=== PATIENT | female | born 1935 | race Caucasian/White ===

== ENCOUNTER 2018-01-05 14:29 | Emergency (ER) | payer MEDICARE ==
--- NOTE | 2018-01-05 15:18 | RAD ---
AP VIEW CHEST: Date: 01/05/18 INDICATION: Cough. FINDINGS: There is air space opacity in right middle lobe suspicious for pneumonia. Left lung is clear. No acut e osseous abnormality is evident. IMPRESSION: Right middle lobe pneumonia. Radiographic follow-up to resolution is recommended. POS: [facility]
== END 2018-01-05 15:14 | disposition home or self-care (01) ==
LOC: MADERS 14:29
DX: J06.9 Acute upper respiratory infection, unspecified (principal); F41.9 Anxiety disorder, unspecified
CPT/HCPCS: 71045

== ENCOUNTER 2019-01-14 23:06 | Emergency (ER) | payer MEDICARE ==
[~2019-01-14 23:06] MED LIST: Sodium Chloride 0.9% 100 ML BAG ONE; Sodium Chloride Irrig Solution 250 ML BOT ONE
[2019-01-15] MEDS ORDERED: cefTRIAXone\\ROCEPHIN 1 GM VIAL ONE
[2019-01-15 00:25] LABS: Band 1 % (5-11); Eosinophils 1 % (0-10); Hemoglobin 11.4 g/dL (12.0-16.0); Hypochromia SLIGHT = 6-15 cells (100X) (0-5/hpf); Lymphocytes 3 % (21-51); MDiff Complete? YES; Mean Corpuscular HGB CONC 32.6 g/dL (32.0-36.0); Mean Corpuscular Hemoglobin 28.3 pg (27.0-31.0); Mean Corpuscular Volume 86.8 fL (78.0-98.0); Mean Platelet Volume 5.7 fL (7.4-10.4); Monocytes 8 % (0-10); Neutrophil 87 % (42-75); Platelet Count 476 thou/uL (130-400); Platelet Morphology Comment Appears Adequate; RBC Distribution Width 12.6 % (11.5-14.5); RBC Morphology Abnormal; Red Blood Cell (RBC) Count 4.02 mill/uL (4.20-5.40); White Blood Cell (WBC) Count 29.3 thou/uL (4.8-10.8)
[2019-01-15 00:28] LABS: ALT (SGPT) 43 U/L (8-55); AST (SGOT) 56 U/L (5-34); Albumin 2.8 g/dL (3.4-4.8); Alkaline Phosphatase 333 U/L (40-150); Anion Gap 16 mmol/L (10-20); BUN (Urea Nitrogen) 12 mg/dL (9.8-20.1); Bilirubin, Total 1.7 mg/dL (0.2-1.2); Calc. Creatinine Clearance 0 mL/min (70-130); Calcium 8.1 mg/dL (7.8-10.44); Carbon Dioxide 27 mmol/L (23-31); Chloride 92 mmol/L (98-107); Estimated GFR-MDRD Greater than 90; Globulin 4.2 g/dL (2.4-3.5); Glucose 139 mg/dL (83-110); Potassium 3.5 mmol/L (3.5-5.1); Sodium 131 mmol/L (136-145)
== END 2019-01-15 01:10 | disposition short-term general hospital (02) ==
LOC: MADERS 23:06
DX: L89.513 Pressure ulcer of right ankle, stage 3 (principal); F03.90 Unspecified dementia, unspecified severity, without behavioral disturbance, psychotic disturbance, mood disturbance, and anxiety; F41.9 Anxiety disorder, unspecified
CPT/HCPCS: 36415; 80053; 83605; 84484; 85025; 87040; 93005; 96365; J0696; J7050

== ENCOUNTER 2019-01-21 18:20 | Inpatient (IN) | payer MEDICARE ==
[2019-01-21] MEDS ORDERED: Acetaminophen 325 MG TAB PO PRN (19:31)
[2019-01-21] MEDS ORDERED: Ondansetron ODT 4 MG TAB PO PRN (19:35)
[2019-01-21] MEDS ORDERED: Amoxicillin/Potassium Clav 250 mg/5 ml Oral Suspension PO SCH (21:00)
[2019-01-21] MEDS: Senokot 8.6 MG TAB PO SCH (21:11)
[2019-01-21] MEDS: Heparin 5,000 UNITS/ML VIAL SC SCH (21:11)
[2019-01-22] MEDS ORDERED: metroNIDAZOLE 250 MG TAB PO SCH (00:15)
[2019-01-22 04:17] LABS: Bilirubin Small (Negative); Blood, Urine Trace (Negative); Glucose, Urine (Dipstick) Negative (Negative); Leukocyte Negative (Negative); Nitrite Negative (Negative); Protein, Urine (Dipstick) 30 mg/dL (Neg-Trace); Urobilinogen 0.2 mg/dL (0.2-1.0); pH, Urine 5.5 (5.0-9.0)
[2019-01-22 04:18] LABS: Clarity Cloudy (Clear)
[2019-01-22 04:22] LABS: Crystals/HPF 4+ AMORPH URATES HPF (Negative)
[2019-01-22 04:25] LABS: Bacteria/HPF Rare-Few HPF (None Seen); RBC/HPF 0-3 HPF (0-3); Squamous Epithelial 0-3 HPF (0-3); WBC/HPF None Seen HPF (0-3)
[2019-01-22 04:26] LABS: Other Casts/LPF 0-3 COARSE GRAN LPF (0-3 Hyaline)
[2019-01-22 05:32] LABS: #Eosinphils 0.1 thou/uL (0.0-0.7); #Lymphocytes 1.3 thou/uL (1.20-3.40); #Monocytes 1.1 thou/uL (0.11-0.59); #Neutrophils 10.4 thou/uL (1.40-6.50); %Basophils 0.3 % (0.0-1.0); %Eosinophils 0.6 % (0.0-10.0); %Lymphocytes 9.8 % (21.0-51.0); %Monocytes 8.8 % (0.0-10.0); %Neutrophils 80.5 % (42.0-75.0); Hemoglobin 8.3 g/dL (12.0-16.0); Mean Corpuscular HGB CONC 32.6 g/dL (32.0-36.0); Mean Corpuscular Hemoglobin 28.7 pg (27.0-31.0); Mean Corpuscular Volume 88.3 fL (78.0-98.0); Mean Platelet Volume 4.5 fL (7.4-10.4); Platelet Count 501 thou/uL (130-400); RBC Distribution Width 13.6 % (11.5-14.5); Red Blood Cell (RBC) Count 2.89 mill/uL (4.20-5.40); White Blood Cell (WBC) Count 12.9 thou/uL (4.8-10.8)
[2019-01-22 05:44] LABS: ALT (SGPT) 14 U/L (8-55); AST (SGOT) 11 U/L (5-34); Albumin 2.1 g/dL (3.4-4.8); Alkaline Phosphatase 167 U/L (40-150); Anion Gap 15 mmol/L (10-20); BUN (Urea Nitrogen) 6 mg/dL (9.8-20.1); Bilirubin, Total 0.4 mg/dL (0.2-1.2); Calc. Creatinine Clearance 56 mL/min (70-130); Calcium 7.1 mg/dL (7.8-10.44); Carbon Dioxide 21 mmol/L (23-31); Chloride 110 mmol/L (98-107); Estimated GFR-MDRD Greater than 90; Globulin 3.1 g/dL (2.4-3.5); Glucose 84 mg/dL (83-110); Protein, Total 5.2 g/dL (6.0-8.3); Sodium 143 mmol/L (136-145)
[2019-01-22 05:56] LABS: Potassium 2.9 mmol/L (3.5-5.1)
[2019-01-22] MEDS: Amoxicillin/Potassium Clav 250 mg/5 ml Oral Suspension PO SCH ×2 (08:26→21:21)
[2019-01-22] MEDS: metroNIDAZOLE 250 MG TAB PO SCH ×2 (08:27→16:50)
[2019-01-22] MEDS: Heparin 5,000 UNITS/ML VIAL SC SCH ×2 (08:27→20:31)
[2019-01-22] MEDS: Saccharomyces boulardii 250 MG CAP PO SCH (08:28)
[2019-01-22] MEDS: Senokot 8.6 MG TAB PO SCH ×2 (08:28→20:31)
--- NOTE | 2019-01-22 10:44 | HP ---
CHIEF COMPLAINT: Weakness and multiple wounds. 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 She also has a history of vascular dementia. She is bed and chair confined. She is nonambulatory and requires total care. She is incontinent of urine. She is cared for by her lbbgukkv-uk-ltk, who has attended her for several years. The patient has through these years developed areas of ulcerations particularly on her feet, occasionally on her bottom, and also in the palm of her left hand from the severe flexion contracture. Due to her severe weakness and flexion contraction, care of this lady has been most difficult. The patient has not been seen by me in over a year. Her ahccpjla-lg-gpo had recently called and said that she had developed severe ulcerations on the sacrum that had gotten worse and that was beyond her abilities to take care of. They had recommended that she be taken to the emergency room, where she could be fully evaluated for these wounds and also re-evaluate the patient because she seemed to have been doing overall worse and not eating as much. The patient was taken to [facility] and evaluated and found to have multiple wounds over her body, most particularly with stage IV decubitus over the sacrum and stage IV over the right ischial tuberosity and an unstageable decubitus over the left ischial tuberosity. She also had multiple lesser wounds over the shoulders, elbows, and over the feet. She was found to have a right middle lobe pneumonia and marked leukocytosis with a white cell count of 29, 000. She was admitted with a diagnosis of right middle lobe pneumonia and probable sepsis , malnutrition and multiple decubitus, that were probably secondarily infected. During her hospitalization, she had blood cultures drawn that had no growth. She was placed on antibiotics using vancomycin and ceftriaxone. The patient's leukocytosis gradually diminished. She has a chronic anemia. There were some mild drop in this, probably secondary to fluids. Hemoglobin is typically around 8.5. She was seen in consultation by the surgeon for consideration of debridement of the stage IV decubitus and he felt that this would be counterproductive given her advanced dementia, contracted state and recommended just palliative care and consideration of hospice care. The patient was also seen by Dr. Nuñez with Infectious Disease, who recommended continuation of the antibiotics and wound care and consideration of palliative hospice type care. Family was at this point, opposed to hospice care , but the patient does have a DNR. Eventually, it was elected to move the patient to [facility] to [facility] i.e., [facility] for wound care and also an effort to try to improve her general nutritional status and general care. Long-term prognosis was felt to be extremely poor, though. The patient had been discharged on Augmentin and Flagyl for the wound infections. The patient arrived at [facility] late on the evening of 01/21. The patient was seen early on the morning of 01/22/2019. She was alert and had very limited interaction. She did talk and at one time, correctly called my name. No historical information could be obtained from her. Information was obtained from my office records and from the recent hospital record, which are outlined above. PAST HISTORY: Previous cerebrovascular accidents that have left her with dense left hemiparalysis, that has been complicated by severe flexion contractures at the shoulder, elbow, wrist and hand, and in the hip and lower legs and feet. She also has very limited use of her right side and essentially and has required total care. She has a vascular dementia. She also has a history years ago of DVT of the left leg in 2015. Historically, she has had a stent placed in the right ureter for apparently hydronephrosis. She has had no previous surgeries. PRESENT MEDICINES: 1. Acetaminophen 325 mg two every 4 hours as needed. 2. Albuterol-ipratropium by nebulizer every 4 hours as needed. 3. Augmentin 400 mg every 12 hours for 10 days. 4. Heparin 5000 units subcu b.i.d. for DVT prophylaxis. 5. Influenza vaccine was received on 01/22. 6. Metronidazole 500 mg t.i.d. for 10 days. 7. Zofran oral disintegrating tablets 4 mg every 6 hours as needed. 8. Florastor 250 mg daily. 9. Senokot one b.i.d. ALLERGIES: NO KNOWN ALLERGIES. REVIEW OF SYSTEMS: The patient not able to answer review of system. Nurses have observed that the patient is on a pureed diet. The patient is a total care. She is nonambulatory. In the home setting, she was primarily in bed, but often would be set up in a wheelchair chair. She is incontinent of urine and stools. HABITS: Alcohol, none. Tobacco, none. SOCIAL HISTORY: The patient is a . She has been taken care of by her abcdaoxx-pu-itd. CODE STATUS: DNR. PHYSICAL EXAMINATION: GENERAL: Shows a cachectic 83-year-old white female, who is lying in bed. She is awake, alert, and occasionally will talk out and will holler any attempts with movement. On an occasion, she did call out my name and she does not appear in any acute distress. VITAL SIGNS: Show a temperature of 98.6, pulse 113, respirations 22, O2 saturation 96% on room air, blood pressure 132/76. Her weight is 99 pounds. HEENT: Head, normocephalic and atraumatic. Her scalp; the hair is matted and there is yellow scaling on the scalp, particularly at the hairlines with extension of this yellow scaling down the preauricular areas bilateral. The ears; the TMs could not be visualized due to cerumen. Eyes; pupils are equal, round, and reactive. Sclerae nonicteric. Nose normal. Mouth and throat; the mucous membranes are moist. There may be a little dryness on the tongue. NECK: Carotids are equal and strong. There is no adenopathy. Thyroid not enlarged. LUNGS: Have good breath sounds. There are no rales. The patient has expiratory rhonchi over the anterior and posterior chest. I did not hear any definite wheezing. HEART: Regular rate. ABDOMEN: Scaphoid with no organomegaly nor areas of tenderness. NEUROLOGIC: The patient is alert, is disoriented to time, place, and situation. She did correctly call my name on one occasion. She could not answer any questioning about what had happened to her. She has a very dense left hemiparalysis with severe contractures of the left shoulder, elbow, wrist, hand. The fingers tightly closed into a fist that could not be extended. Also, tight flexion contractures of the hips and elbows. Her right side, the right arm, she has limited motion. Her right foot is extended with plantar flexion of the feet with a little movement in it also. SKIN: The patient has multiple decubitus, the ones of most note are the following; sacral that measures 9 x 9 cm extends down to the sacral bone. Has some brown yellowish slough in the base of the wound. Edges of the wound have some leathery necrosis along the inferior and lateral borders. The wound undermines particularly on the left and inferior aspect at least 2 cm. The next one is the right ischial tuberosity. There is a 3 cm stage IV decubitus that extends to a depth of at least 3 cm with a brown mucoid slough at the base of the wound extends down to the ischial tuberosity. Over the left ischial tuberosity, there is a 1 x 2 cm unstageable decubitus that has kind of a black and overlying eschar. No surrounding redness. The patient has multiple superficial ulcerations that are mostly stage II that hurt over her right shoulder, right elbow and over the dorsum of the right foot. Over the right foot on the plantar surface of the first MP joint, there is a stage III decubitus that is 3 cm in diameter with a red base with some small areas of yellow slough. There is no surrounding erythema. The patient also has stage II decubitus along the posterior left upper leg. The left hand has a severe flexion contracture, where the hand is held into a fist position with the tuft of the fingertips deeply imbedded into the palm. These fingers cannot be extended. There appears to be a guaze that has been there for a long time between two of the fingers that has been placed in the hand that could not be extracted at this time. IMPRESSION: 1. Multiple decubitus. a. Stage IV sacral decubitus. b. Stage IV right ischial tuberosity decubitus. c. Unstageable left ischial tuberosity. d. Multiple stage II decubitus over the right shoulder, elbow, dorsum of the foot, left leg. e. Stage III decubitus over the plantar surface of the first MP joint of the right foot. 2. Vascular dementia, very advanced. a. Requires total care. 3. History of cerebral vascular accident. a. 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 b. Extension deformity with plantar flexion of the right leg. c. Essentially quadriplegic. 4. Severe weakness. a. Bed confined. b. Requires total care. c. Urinary incontinence. 5. Code status, DNR. 6. Hospitalized at [facility] from 01/15 to 01/21/2019 for right middle lobe pneumonia and multiple decubitus with infection. PLAN: The patient has been admitted to [facility] for wound care and also comfort measures. Family at this point has not wanted to pursue hospice care. Will though manage the patient in a palliative manner while also tending the wounds. Her long-term prognosis is very poor. She does have a DNR. The wound management on the deep stage IV will be managed with wet-to-dry dressings. The stage III on the right foot will be managed with daily cleansing and application of a silver alginate pad and overlying Mepilex. The more superficial wounds will be cared for with cleansing and application of Mepilex dressings. The patient will be placed on air floatation mattress. We will try to improve her nutritional status as best as she will allow. Will position her for comfort. Christie catheter has been inserted to prevent maturation of these severe wounds to the sacrum and the ischial tuberosity areas. Code status is a DNR. We will complete a 10-day course of the antibiotics. Job ID: [id number] [facility]
[2019-01-22] MEDS: Acetaminophen 325 MG TAB PO PRN (13:46)
[2019-01-23] MEDS: metroNIDAZOLE 250 MG TAB PO SCH ×4 (00:24→23:31)
[2019-01-23 05:30] LABS: Anion Gap 16 mmol/L (10-20); BUN (Urea Nitrogen) 5 mg/dL (9.8-20.1); Calc. Creatinine Clearance 64 mL/min (70-130); Carbon Dioxide 20 mmol/L (23-31); Chloride 107 mmol/L (98-107); Estimated GFR-MDRD Greater than 90; Glucose 129 mg/dL (83-110); Sodium 140 mmol/L (136-145)
[2019-01-23] MEDS ORDERED: Potassium Chloride 20 MEQ TAB PO SCH (08:00)
[2019-01-23] MEDS: Amoxicillin/Potassium Clav 250 mg/5 ml Oral Suspension PO SCH ×2 (08:54→20:44)
[2019-01-23] MEDS: Heparin 5,000 UNITS/ML VIAL SC SCH ×2 (08:55→20:44)
[2019-01-23] MEDS: Senokot 8.6 MG TAB PO SCH ×3 (08:56→20:54)
[2019-01-23] MEDS: Saccharomyces boulardii 250 MG CAP PO SCH (08:56)
--- NOTE | 2019-01-23 09:34 | PRG ---
DATE OF SERVICE: 01/23/2019 SUBJECTIVE: The patient was seen early this morning. She was lying in her bed. Her eyes were awake. She was alert. Would answer some questions and she said she was not hurting, but really could not get her to answer many other questions. When we go to examine her or move her in the least, she says we were hurting her. The dietitian has made several recommendations on dietary change, which will follow. Have opted to wait about starting usual the medicines for wound healing that would be the vitamin C , the zinc, the multivitamins and protein supplements since she is having trouble with poor appetite. This probably also contributed to by her antibiotics. As this improves, we will consider starting these then. The patient did develop, the nurse reported this morning, some loose stools that had a strong odor. These have been submitted to ensure there is not a C. diff infection. Presently though, she is on metronidazole. OBJECTIVE: GENERAL: The patient is lying in bed, alert, appears comfortable, in no distress. VITAL SIGNS: Her temperature 99.1, pulse 93, respirations 18, O2 saturation 94% , and blood pressure 134/66. LUNGS: Clear. HEART: Regular rate. EXTREMITIES: I did not attempt to look at the wounds yet. These are being changed once a day and will review report from nurses or visit with nurses after this has been done. LABORATORY DATA: Her sodium 140, potassium is 3, BUN is 5, creatinine 0.46, glucose 129. ASSESSMENT: 1. Multiple decubitus. a. Stage IV sacral decubitus. b. Stage IV right ischial tuberosity decubitus. c. Unstageable left ischial tuberosity. d. Multiple stage II decubitus over the right shoulder, elbow, dorsum of the foot, left leg. e. Stage III decubitus over the plantar surface of the first MP joint of the right foot. f. On going daily wound care as of 01/23/2019. 2. Vascular dementia, very advanced. a. Requires total care. 3. History of cerebral vascular accident. a. 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 b. Extension deformity with plantar flexion of the right leg. c. Essentially quadriplegic. 4. Severe weakness. a. Bed confined. b. Requires total care. c. Urinary incontinence. 5. Code status, DNR. 6. Hospitalized at [facility] from 01/15 to 01/21/2019 for right middle lobe pneumonia and multiple decubitus with infection. PLAN: Continue daily wound care. Continue comfort measures. Her potassium is up to 3. We will recheck this in a few days. Job ID: [id number] [facility]
[2019-01-23] MEDS ORDERED: Acetaminophen 325 MG TAB PO PRN (14:00)
[2019-01-24 05:21] LABS: #Basophils 0.1 thou/uL (0.0-0.2); #Eosinphils 0.1 thou/uL (0.0-0.7); #Lymphocytes 1.6 thou/uL (1.20-3.40); #Neutrophils 10.1 thou/uL (1.40-6.50); %Basophils 0.5 % (0.0-1.0); %Eosinophils 0.6 % (0.0-10.0); %Lymphocytes 12.4 % (21.0-51.0); %Monocytes 7.8 % (0.0-10.0); %Neutrophils 78.8 % (42.0-75.0); Hemoglobin 8.5 g/dL (12.0-16.0); Mean Corpuscular HGB CONC 33.6 g/dL (32.0-36.0); Mean Corpuscular Hemoglobin 29.4 pg (27.0-31.0); Mean Corpuscular Volume 87.6 fL (78.0-98.0); Mean Platelet Volume 4.6 fL (7.4-10.4); Platelet Count 463 thou/uL (130-400); RBC Distribution Width 14.6 % (11.5-14.5); White Blood Cell (WBC) Count 12.8 thou/uL (4.8-10.8)
[2019-01-24 05:32] LABS: Anion Gap 11 mmol/L (10-20); BUN (Urea Nitrogen) 5 mg/dL (9.8-20.1); Calc. Creatinine Clearance 65 mL/min (70-130); Calcium 6.7 mg/dL (7.8-10.44); Carbon Dioxide 25 mmol/L (23-31); Chloride 104 mmol/L (98-107); Estimated GFR-MDRD Greater than 90; Glucose 123 mg/dL (83-110); Sodium 137 mmol/L (136-145)
[2019-01-24 06:04] LABS: Potassium 2.5 mmol/L (3.5-5.1)
[2019-01-24] MEDS ORDERED: Sodium Chloride Irrig Solution 250 ML BOT ONE (06:47)
[2019-01-24] MEDS: Potassium Chloride 20 MEQ TAB PO SCH ×3 (08:18→16:51)
[2019-01-24] MEDS: Senokot 8.6 MG TAB PO SCH (08:19)
[2019-01-24] MEDS: Heparin 5,000 UNITS/ML VIAL SC SCH ×2 (08:19→21:09)
[2019-01-24] MEDS: Saccharomyces boulardii 250 MG CAP PO SCH (08:19)
[2019-01-24] MEDS: metroNIDAZOLE 250 MG TAB PO SCH ×2 (08:19→16:51)
--- NOTE | 2019-01-24 09:26 | PRG ---
DATE OF SERVICE: 01/24/2019 SUBJECTIVE: Nurses called and said that the patient had multiple watery bowel movements, soft bowel movements, through the night. The bowel movements created soiling of the sacral dressings, and the nurse had to re-dress the sacral wounds 6 to 7 times during the night. Her urinary output through the night was 150. Nurses said they were able to get 800 mL of water in her. OBJECTIVE: GENERAL: This morning, she is not complaining. She is lying in bed, looks comfortable. VITAL SIGNS: Show a temperature 99.4, pulse 88, respirations 20, O2 saturation 95% on room air, blood pressure 120/58. HEENT: Mouth; tongue is a little more dry. Mucous membranes look a little more dry than what they had. SKIN: The patient has poor skin turgor. LUNGS: Clear. HEART: Regular rate. ABDOMEN: Scaphoid and nontender. Her dressings are all clean. LABORATORY DATA: Show H and H of 8.5 and 25.4, white blood cell count 12,800 with 79% segs, 12% lymphocytes, and a platelet count of 463,000. Her sodium is 137. Her potassium has dropped to 2.5 as result of the diarrhea. Her CO2 is 25. Her BUN is 5, creatinine 0.45, GFR greater than 90. FBS 123. Clostridium difficile antigen and toxin were both negative, that was reported back early this morning. ASSESSMENT: 1. Multiple decubitus. a. Stage IV sacral decubitus. b. Stage IV right ischial tuberosity decubitus. c. Unstageable left ischial tuberosity. d. Multiple stage II decubitus over the right shoulder, elbow, dorsum of the foot, left leg. e. Stage III decubitus over the plantar surface of the first MP joint of the right foot. f. On going daily wound care as of 01/24/2019. 2. Vascular dementia, very advanced. a. Requires total care. 3. History of cerebral vascular accident. a. 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 b. Extension deformity with plantar flexion of the right leg. c. Essentially quadriplegic. 4. Severe weakness. a. Bed confined. b. Requires total care. c. Urinary incontinence. 5. Code status, DNR. 6. Hospitalized at [facility] from 01/15 to 01/21/2019 for right middle lobe pneumonia and multiple decubitus with infection. 7. Diarrhea. a. Stools for Clostridium difficile toxin and antigen, negative as of 2018. b. Etiology of the diarrhea may be secondary to the effect of the Augmentin and contributed to by the dietary supplements. 8. Hypokalemia. a. Potassium originally was 2.9, went up yesterday to 3, and now down to 2.5 secondary to the diarrhea as of 01/24/2019. PLAN: Encourage liquids. I will try not to have to initiate in this lady IV fluids unless we see further decline and if okay with family. I will try to encourage liquids. I have stopped the supplements in the event this is a contributor to the diarrhea. I have also stopped the Augmentin, which I suspect has contributed to the diarrhea. The patient is on a Florastor probiotic. We will continue this. We will continue present wound care and comfort measures. Job ID: [id number] [facility]
[2019-01-24] MEDS: Acetaminophen 325 MG TAB PO PRN (21:10)
[2019-01-25] MEDS: metroNIDAZOLE 250 MG TAB PO SCH ×4 (01:43→23:27)
[2019-01-25 07:54] LABS: #Basophils 0.1 thou/uL (0.0-0.2); #Eosinphils 0.1 thou/uL (0.0-0.7); #Lymphocytes 1.6 thou/uL (1.20-3.40); #Neutrophils 7.7 thou/uL (1.40-6.50); %Basophils 0.6 % (0.0-1.0); %Eosinophils 0.8 % (0.0-10.0); %Lymphocytes 15.4 % (21.0-51.0); %Monocytes 9.2 % (0.0-10.0); Hemoglobin 8.7 g/dL (12.0-16.0); Mean Corpuscular HGB CONC 32.8 g/dL (32.0-36.0); Mean Corpuscular Volume 88.3 fL (78.0-98.0); Mean Platelet Volume 4.6 fL (7.4-10.4); Platelet Count 519 thou/uL (130-400); White Blood Cell (WBC) Count 10.3 thou/uL (4.8-10.8)
[2019-01-25 08:06] LABS: Anion Gap 10 mmol/L (10-20); BUN (Urea Nitrogen) 6 mg/dL (9.8-20.1); Calc. Creatinine Clearance 67 mL/min (70-130); Calcium 6.8 mg/dL (7.8-10.44); Carbon Dioxide 27 mmol/L (23-31); Chloride 106 mmol/L (98-107); Estimated GFR-MDRD Greater than 90; Glucose 106 mg/dL (83-110); Potassium 3.2 mmol/L (3.5-5.1); Sodium 140 mmol/L (136-145)
[2019-01-25] MEDS: Potassium Chloride 20 MEQ TAB PO SCH ×2 (09:15→20:52)
[2019-01-25] MEDS: Heparin 5,000 UNITS/ML VIAL SC SCH ×2 (09:16→20:51)
[2019-01-25] MEDS: Saccharomyces boulardii 250 MG CAP PO SCH (09:16)
--- NOTE | 2019-01-25 11:57 | PRG ---
DATE OF SERVICE: 01/25/2019 SUBJECTIVE: Nurses said that the patient's diarrhea is much improved after stopping the Augmentin and the diet supplement. Her stools frequency have noticeably decreased and volume decreased. Yesterday during the day, she had only had two and had not had much during the night. Her urinary output during the dayshift was only 125. They are encouraging liquids with her during the night. She had had a temperature elevation to 100.9, but this morning, it has dropped down to 98.6. She did not have any new complaints. The nurse did not notice anything different about her. OBJECTIVE: GENERAL: This morning patient lying in bed with the head elevated and she is eating her pureed diet. She is alert and seems to be eating fair. VITAL SIGNS: Her temperature is 98.6, pulse 68, respirations 18, O2 saturation 96% on room air, blood pressure 129/59. Her weight is stable at 99. Her urinary output through the night was only 125. The urine appears dark. HEENT: Her mucous membranes of her mouth looks more moist. LUNGS: Clear. There are a little diminished breath sounds of the left posterior base. HEART: Regular rate. EXTREMITIES: Wounds were all dressed. During dressing change, we will try to get a look at these. Nurses report no major change in the appearance. LABORATORY DATA: Her lab this morning shows H and H of 8.7 and 26.5, white cell count is down to 10,300 with 74% segs, 15% lymphocytes, platelet count of 519, 000. Her sodium is 140, potassium is up to 3.2. Her BUN is 6, creatinine 0.44, glucose 106. ASSESSMENT: 1. Multiple decubitus. a. Stage IV sacral decubitus. b. Stage IV right ischial tuberosity decubitus. c. Unstageable left ischial tuberosity. d. Multiple stage II decubitus over the right shoulder, elbow, dorsum of the foot, left leg. e. Stage III decubitus over the plantar surface of the first MP joint of the right foot. f. On going daily wound care as of 01/25/2019. 2. Vascular dementia, very advanced. a. Requires total care. 3. History of cerebral vascular accident. a. 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 b. Extension deformity with plantar flexion of the right leg. c. Essentially quadriplegic. 4. Severe weakness. a. Bed confined. b. Requires total care. c. Urinary incontinence. 5. Code status, DNR. 6. Hospitalized at [facility] from 01/15 to 01/21/2019 for right middle lobe pneumonia and multiple decubitus with infection. 7. Diarrhea. a. Stools for Clostridium difficile toxin and antigen, negative as of 2018. b. Etiology of the diarrhea may be secondary to the effect of the Augmentin and contributed to by the dietary supplements. c. Marked improvement as of 01/25/2019. 8. Hypokalemia. a. Potassium originally was 2.9, went up yesterday to 3, and now down to 2.5 secondary to the diarrhea as of 01/24/2019. b. Improved with potassium of 3.2 as of 01/25/2019. PLAN: The patient had a low-grade fever. No obvious source is apparent from this. We will continue to observe the patient. Since stopping the Augmentin and the diet supplement, the diarrhea has markedly improved. Suspect that these were the culprits. Her C. diff toxin and antigen was negative. We will observe her temperature. If she begins running a significant fever, we will need to culture her and consider re-x-ray and then rechecking the urine. Her hydration status seems to be stable, maybe a little improved. We will encourage continuation of pushing of fluids. We will reduce her potassium to 20 mEq b.i.d., recheck her electrolytes tomorrow. Long-term prognosis for this lady is very poor. Job ID: [id number] [facility]
[2019-01-26 05:51] LABS: Anion Gap 15 mmol/L (10-20); BUN (Urea Nitrogen) 4 mg/dL (9.8-20.1); Calc. Creatinine Clearance 67 mL/min (70-130); Carbon Dioxide 24 mmol/L (23-31); Chloride 104 mmol/L (98-107); Estimated GFR-MDRD Greater than 90; Glucose 89 mg/dL (83-110); Potassium 3.8 mmol/L (3.5-5.1); Sodium 139 mmol/L (136-145)
[2019-01-26] MEDS: Potassium Chloride 20 MEQ TAB PO SCH (08:34)
[2019-01-26] MEDS: metroNIDAZOLE 250 MG TAB PO SCH ×2 (08:34→16:48)
[2019-01-26] MEDS: Saccharomyces boulardii 250 MG CAP PO SCH (08:34)
[2019-01-26] MEDS: Heparin 5,000 UNITS/ML VIAL SC SCH ×2 (08:34→21:38)
[2019-01-26] MEDS: Mirtazapine 15 MG TAB PO SCH (21:38)
[2019-01-27] MEDS: Acetaminophen 325 MG TAB PO PRN (00:09)
[2019-01-27] MEDS: metroNIDAZOLE 250 MG TAB PO SCH ×4 (00:09→18:07)
[2019-01-27 05:22] LABS: Anion Gap 10 mmol/L (10-20); BUN (Urea Nitrogen) 4 mg/dL (9.8-20.1); Calc. Creatinine Clearance 64 mL/min (70-130); Calcium 6.9 mg/dL (7.8-10.44); Carbon Dioxide 26 mmol/L (23-31); Chloride 103 mmol/L (98-107); Estimated GFR-MDRD Greater than 90; Glucose 95 mg/dL (83-110); Potassium 3.7 mmol/L (3.5-5.1); Sodium 135 mmol/L (136-145)
[2019-01-27] MEDS: Heparin 5,000 UNITS/ML VIAL SC SCH ×2 (08:19→21:38)
[2019-01-27] MEDS: Saccharomyces boulardii 250 MG CAP PO SCH (08:19)
[2019-01-27] MEDS: Potassium Chloride 20 MEQ TAB PO SCH ×2 (08:20→08:30)
[2019-01-27] MEDS: Morphine 10 MG/0.5 ML ORAL SYRINGE PO PRN ×2 (17:59→21:49)
[2019-01-27] MEDS: Mirtazapine 15 MG TAB PO SCH (21:38)
[2019-01-28] MEDS: metroNIDAZOLE 250 MG TAB PO SCH ×4 (00:38→16:21)
[2019-01-28] MEDS: Acetaminophen 325 MG TAB PO PRN (02:45)
[2019-01-28 06:33] LABS: Crenated RBC MODERATE= 6-15 cells (100X) (None Seen); Eosinophils 1 % (0-10); Hemoglobin 10.2 g/dL (12.0-16.0); Hypochromia SLIGHT = 6-15 cells (100X) (0-5/hpf); Lymphocytes 10 % (21-51); MDiff Complete? YES; Macrocytosis SLIGHT = 6-15 cells (100X) (0-5/hpf); Mean Corpuscular HGB CONC 32.4 g/dL (32.0-36.0); Mean Corpuscular Hemoglobin 28.9 pg (27.0-31.0); Mean Corpuscular Volume 89.1 fL (78.0-98.0); Mean Platelet Volume 4.9 fL (7.4-10.4); Microcytosis SLIGHT = 6-15 cells (100X) (0-5/hpf); Monocytes 9 % (0-10); Neutrophil 76 % (42-75); Platelet Count 486 thou/uL (130-400); Platelet Morphology Comment Appears Adequate; RBC Distribution Width 17.6 % (11.5-14.5); RBC Morphology Abnormal; Reactive Lymphocytes 4 % (0-10); Red Blood Cell (RBC) Count 3.54 mill/uL (4.20-5.40); White Blood Cell (WBC) Count 15.5 thou/uL (4.8-10.8)
[2019-01-28 06:34] LABS: Anion Gap 11 mmol/L (10-20); BUN (Urea Nitrogen) 5 mg/dL (9.8-20.1); Calc. Creatinine Clearance 62 mL/min (70-130); Calcium 7.2 mg/dL (7.8-10.44); Carbon Dioxide 24 mmol/L (23-31); Chloride 100 mmol/L (98-107); Estimated GFR-MDRD Greater than 90; Glucose 98 mg/dL (83-110); Potassium 4.4 mmol/L (3.5-5.1); Sodium 131 mmol/L (136-145)
[2019-01-28] MEDS: Saccharomyces boulardii 250 MG CAP PO SCH (09:00)
[2019-01-28] MEDS: Heparin 5,000 UNITS/ML VIAL SC SCH ×2 (09:00→22:30)
[2019-01-28] MEDS: Potassium Chloride 20 MEQ TAB PO SCH (09:00)
--- NOTE | 2019-01-28 09:38 | PRG ---
DATE OF SERVICE: 01/26/2019 SUBJECTIVE: Nurses changing the wounds daily. She had a good bath yesterday and another shampoo. Scalp looks much improved. Nurses said she eats very little and takes a lot of coaxing and encouragement. OBJECTIVE: GENERAL: The patient is lying in bed with the head elevated. She is awake, talkative, and all she says is "you stink." She appears in no distress. VITAL SIGNS: Show a temperature of 99.6 that is the highest it has been for the last 36 hours. Her pulse 92, respirations 16, O2 saturation 95% on room air, and blood pressure 129/70. Her output over the last 24 hours is 450, which is much improved. Her weight is stable at 99.6. LUNGS: Clear. HEART: Regular rate. SKIN: Wounds were all clean and dry. She has some marked contractures of the right knee and also the left arm and left leg. LABORATORY DATA: Her lab shows a sodium of 139, potassium of 3.8, her BUN is 4, creatinine 0.44, and glucose 89. ASSESSMENT: 1. Multiple decubitus. a. Stage IV sacral decubitus. b. Stage IV right ischial tuberosity decubitus. c. Unstageable left ischial tuberosity. d. Multiple stage II decubitus over the right shoulder, elbow, dorsum of the foot, left leg. e. Stage III decubitus over the plantar surface of the first MP joint of the right foot. f. On going daily wound care as of 01/26/2019. 2. Vascular dementia, very advanced. a. Requires total care. 3. History of cerebral vascular accident. a. 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 b. Extension deformity with plantar flexion of the right leg. c. Essentially quadriplegic. 4. Severe weakness. a. Bed confined. b. Requires total care. c. Urinary incontinence. 5. Code status, DNR. 6. Hospitalized at [facility] from 01/15 to 01/21/2019 for right middle lobe pneumonia and multiple decubitus with infection. 7. Diarrhea. a. Stools for Clostridium difficile toxin and antigen, negative as of 2018. b. Etiology of the diarrhea may be secondary to the effect of the Augmentin and contributed to by the dietary supplements. c. Resolving as of 01/26/2019. 8. Hypokalemia. a. Potassium originally was 2.9, went up yesterday to 3, and now down to 2.5 secondary to the diarrhea as of 01/24/2019. b. Potassium has improved to 3.8 as of 01/26/2019. PLAN: The patient looks better. Her scalp looks very clean. Her skin looks very clean. Ulcers are all dressed and the dressings are dry. We will continue to try to encourage her to eat. We will try her on mirtazapine 15 mg at night to see if this will help stimulate her appetite. Recheck electrolytes on Sunday 01/28. [facility] [id number] [facility]
--- NOTE | 2019-01-28 09:54 | PRG ---
DATE OF SERVICE: 01/28/2019 SUBJECTIVE: Yesterday, nurses thought the patient was probably hurting. She has limited ability to complain, and she said they certainly seem uncomfortable with the dressing changes as very hard for her to take oral medication. She is not eating. They are able to get fluids down her. Morphine concentrate was ordered, that can be given sublingual. OBJECTIVE: GENERAL: This morning, the patient is lying in bed. She is awake, but had very little that she spoke. Dressing appears comfortable. NO distress. VITAL SIGNS: Show a temperature 98.1, pulse 85, respirations 18, O2 saturation 97% on room air, blood pressure 134/76. LUNGS: Clear. HEART: Regular rate. Dressings are all dry. These will be changed later. HEENT: Her mouth is a little dry. LABORATORY DATA: CBC this morning shows an H and H of 10.2 and 31.6, white cell count 15,500 with 76% segs and 10% lymphocytes, platelet count of 486,000. Sodium is 131, potassium 4.4, BUN 5, creatinine 0.47, glucose 98. ASSESSMENT: 1. Multiple decubitus. a. Stage IV sacral decubitus. b. Stage IV right ischial tuberosity decubitus. c. Unstageable left ischial tuberosity. d. Multiple stage II decubitus over the right shoulder, elbow, dorsum of the foot, left leg. e. Stage III decubitus over the plantar surface of the first MP joint of the right foot. f. On going daily wound care as of 01/28/2019. 2. Vascular dementia, very advanced. a. Requires total care. 3. History of cerebral vascular accident. a. 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 b. Extension deformity with plantar flexion of the right leg. c. Essentially quadriplegic. 4. Severe weakness. a. Bed confined. b. Requires total care. c. Urinary incontinence. 5. Code status, DNR. 6. Hospitalized at [facility] from 01/15 to 01/21/2019 for right middle lobe pneumonia and multiple decubitus with infection. 7. Diarrhea. a. Stools for Clostridium difficile toxin and antigen, negative as of 2018. b. Etiology of the diarrhea may be secondary to the effect of the Augmentin and contributed to by the dietary supplements. c. Resolved as of 01/28/2019. 8. Hypokalemia. a. Potassium originally was 2.9, went up yesterday to 3, and now down to 2.5 secondary to the diarrhea as of 01/24/2019. b. Resolved with potassium 3.7 with supplementation as of 01/28/2019. PLAN: Continue present care. Continue to encourage fluid intake. She did have yesterday during the day shift 400 mL fluid intake. Her urinary output; the day before, she has 700 mL urinary output. Job ID: [id number] [facility]
[2019-01-28] MEDS: Mirtazapine 15 MG TAB PO SCH (22:30)
[2019-01-29] MEDS: metroNIDAZOLE 250 MG TAB PO SCH ×4 (01:17→23:12)
[2019-01-29] MEDS: Morphine 10 MG/0.5 ML ORAL SYRINGE PO PRN (04:31)
[2019-01-29] MEDS: Saccharomyces boulardii 250 MG CAP PO SCH (09:59)
[2019-01-29] MEDS: Heparin 5,000 UNITS/ML VIAL SC SCH ×2 (09:59→20:43)
[2019-01-29] MEDS: Potassium Chloride 20 MEQ TAB PO SCH (09:59)
[2019-01-29] MEDS: Acetaminophen 325 MG TAB PO PRN (20:44)
[2019-01-29] MEDS: Mirtazapine 15 MG TAB PO SCH (20:44)
[2019-01-30] MEDS: Morphine 10 MG/0.5 ML ORAL SYRINGE PO PRN (02:46)
[2019-01-30 05:24] LABS: Anisocytosis SLIGHT = 6-15 cells (100X) (0-5/hpf); Eosinophils 1 % (0-10); Hemoglobin 9.7 g/dL (12.0-16.0); Hypochromia MODERATE=16-30 cells (100X) (0-5/hpf); Lymphocytes 8 % (21-51); MDiff Complete? YES; Mean Corpuscular HGB CONC 31.9 g/dL (32.0-36.0); Mean Corpuscular Hemoglobin 29.1 pg (27.0-31.0); Mean Corpuscular Volume 90.9 fL (78.0-98.0); Mean Platelet Volume 4.8 fL (7.4-10.4); Microcytosis SLIGHT = 6-15 cells (100X) (0-5/hpf); Monocytes 7 % (0-10); Neutrophil 79 % (42-75); Platelet Count 538 thou/uL (130-400); Platelet Morphology Comment Appears Increased; Poikilocytosis SLIGHT = 6-15 cells (100X) (0-5/hpf); RBC Distribution Width 18.3 % (11.5-14.5); RBC Morphology Abnormal; Reactive Lymphocytes 5 % (0-10); Red Blood Cell (RBC) Count 3.33 mill/uL (4.20-5.40); White Blood Cell (WBC) Count 9.5 thou/uL (4.8-10.8)
[2019-01-30 05:55] LABS: Bilirubin Negative (Negative); Blood, Urine Moderate (Negative); Glucose, Urine (Dipstick) Negative (Negative); Leukocyte Small (Negative); Nitrite Negative (Negative); Protein, Urine (Dipstick) Negative (Neg-Trace); Specific Gravity, Urine 1.015 (1.005-1.030); Urobilinogen 0.2 mg/dL (0.2-1.0); pH, Urine 8.5 (5.0-9.0)
[2019-01-30 05:56] LABS: Clarity Hazy (Clear)
[2019-01-30 06:00] LABS: Bacteria/HPF None Seen HPF (None Seen); RBC/HPF GREATER THAN 50-TNTC HPF (0-3); Yeast-All Forms 4+ HPF (None Seen)
[2019-01-30] MEDS: Heparin 5,000 UNITS/ML VIAL SC SCH (08:44)
[2019-01-30] MEDS: metroNIDAZOLE 250 MG TAB PO SCH (08:45)
[2019-01-30] MEDS: Saccharomyces boulardii 250 MG CAP PO SCH (08:45)
[2019-01-30] MEDS: Potassium Chloride 20 MEQ TAB PO SCH (08:45)
--- NOTE | 2019-01-30 10:13 | PRG ---
DATE OF SERVICE: 01/30/2019 SUBJECTIVE: The patient is lying in bed. She is awake, a little more talkative this morning. Nurses said she frequently will talk with them. She will tell them she wants to leave or to get out or they are hurting her. Her caregiver, Bianca Oliva, said she is able to get a little food in her. Last evening, the patient had a temperature up to 101.1 rectal. This has come down with Tylenol. This morning, she is 98.8. Nurses report the wounds are about the same. OBJECTIVE: GENERAL: The patient is lying in bed. She is alert, talkative, and says she wants to leave. VITAL SIGNS: Her temperature is 98.8, pulse 107, respirations 16, O2 saturation 97% on room air, blood pressure 147/87. HEENT: Mouth; the patient has her tongue protruding some. The tongue is a little dry, but the mucous membranes seem moist. LUNGS: Clear. HEART: Regular rate. EXTREMITIES: No edema. The dressings are all dry. Nurses report not much change in these. LABORATORY DATA: Her lab shows an H and H of 9.7 and 30.2, white cell count 9500 with 70% segs, 8% lymphocytes, and a platelet count of 538,000. Her sodium 135, potassium 3.7, BUN 4, creatinine 0.46, GFR greater than 90, glucose 95. Her urine shows rbc's greater than 50, wbc's too numerous to count. There was 4+ yeast present. Moderate amount of blood on the dip. Nitrite, negative. ASSESSMENT: 1. Multiple decubitus. a. Stage IV sacral decubitus. b. Stage IV right ischial tuberosity decubitus. c. Unstageable left ischial tuberosity. d. Multiple stage II decubitus over the right shoulder, elbow, dorsum of the foot, left leg. e. Stage III decubitus over the plantar surface of the first MP joint of the right foot. f. Ongoing daily wound care as of 01/30/2019, with minimal change. 2. Vascular dementia, very advanced. a. Requires total care. 3. History of cerebral vascular accident. a. 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 b. Extension deformity with plantar flexion of the right leg. c. Essentially quadriplegic. 4. Severe weakness. a. Bed confined. b. Requires total care. c. Urinary incontinence. d. Unchanged as of 01/30/2019. 5. Code status, DNR. 6. Hospitalized at [facility] from 01/15 to 01/21/2019 for right middle lobe pneumonia and multiple decubitus with infection. 7. Diarrhea. a. Stools for Clostridium difficile toxin and antigen, negative as of 2018. b. Etiology of the diarrhea may be secondary to the effect of the Augmentin and contributed to by the dietary supplements. c. Resolved as of 01/28/2019. 8. Hypokalemia. a. Potassium originally was 2.9, went up yesterday to 3, and now down to 2.5 secondary to the diarrhea as of 01/24/2019. b. Resolved with potassium 3.7 with supplementation as of 01/28/2019. 9. Probable candidiasis of the bladder. PLAN: Continue present wound care. Continue comfort measures. We will place the patient on a 7-day course of Diflucan for the candidiasis of the bladder. Culture of the urine is pending. Visited with the patient's primary caregiver, Bianca Oliva, yesterday about her condition and need for long-term stay for the wound care. The patient remains with a very poor prognosis. We will discontinue the subcutaneous heparin injections and also discontinue the metronidazole. Job ID: [id number] [facility]
[2019-01-30] MEDS: Fluconazole 100 MG TAB PO SCH (10:52)
[2019-01-30] MEDS: Mirtazapine 15 MG TAB PO SCH (20:17)
[2019-01-30] MEDS: Acetaminophen 325 MG TAB PO PRN (21:42)
[2019-01-31] MEDS: Fluconazole 100 MG TAB PO SCH (08:02)
[2019-01-31] MEDS: Potassium Chloride 20 MEQ TAB PO SCH (08:03)
[2019-01-31] MEDS: Saccharomyces boulardii 250 MG CAP PO SCH (08:03)
[2019-01-31] MEDS: Morphine 10 MG/0.5 ML ORAL SYRINGE PO PRN (16:01)
[2019-01-31] MEDS: Mirtazapine 15 MG TAB PO SCH (20:09)
[2019-02-01] MEDS: Saccharomyces boulardii 250 MG CAP PO SCH (09:03)
[2019-02-01] MEDS: Fluconazole 100 MG TAB PO SCH (09:03)
[2019-02-01] MEDS: Potassium Chloride 20 MEQ TAB PO SCH (09:03)
[2019-02-01] MEDS ORDERED: Sodium Chloride Irrig Solution 250 ML BOT ONE (09:04)
[2019-02-01] MEDS: Acetaminophen 325 MG TAB PO PRN (14:16)
--- NOTE | 2019-02-01 15:20 | PRG ---
DATE OF SERVICE: 02/01/2019 SUBJECTIVE: Nurses report no change. They are working on her to try to get her to eat a little bit more. Dietitian has recommended Mighty[employer], which in the past she has used. From home, her caregivers says she eats bananas. They have seen her ate some here. She also ate applesauce and she likes Cokes. The nurses try, but it is a struggle. Nurses changed her dressings at 4:00 this morning. The wound over the right ischial tuberosity is much street light lamp cleaner. The large sacral wound with a large area of undermining is also much street light lamp cleaner. There is still some yellowish slough on the superior and inferior edge. The bed of the wound though does have some minimal yellowish brownish slough. There is still a large amount of undermining. Overall , though it looks better. The right foot ulcer looks about the same. There is maybe a third of the wound has a little yellowish slough, the rest has good red granulation tissue. Some of the little superficial breakdown areas have healed. She still has the unstageable wound over the left ischial tuberosity that looks unchanged, just has overlying black eschar. She has the unstageable area on the right posterior shoulder that looks no different. The little superficial breakdown areas adjacent to this though have healed. OBJECTIVE: GENERAL: The patient is lying in bed. She is alert. Occasionally, she will talk a little. VITAL SIGNS: Her temperature is 99.6, last night she had a temperature of 100.1, pulse 102, respirations 20, O2 saturations 96%, and blood pressure 121/68. LUNGS: Clear. HEART: Regular rate. Wounds are described above. Urine cultures growing yeast with colony count greater than 100,000, for which she has already been started on Diflucan. ASSESSMENT: 1. Multiple decubitus. a. Stage IV sacral decubitus. b. Stage IV right ischial tuberosity decubitus. c. Unstageable left ischial tuberosity. d. Multiple stage II decubitus over the right shoulder, elbow, dorsum of the foot, left leg. e. Stage III decubitus over the plantar surface of the first MP joint of the right foot. f. Ongoing daily wound care. Wounds look a little street light lamp cleaner. There is still several unstageable wounds present as of 02/01/2019. 2. Vascular dementia, very advanced. a. Requires total care. 3. History of cerebral vascular accident. a. 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 b. Extension deformity with plantar flexion of the right leg. c. Essentially quadriplegic. 4. Severe weakness. a. Bed confined. b. Requires total care. c. Urinary incontinence. d. Unchanged as of 02/01/2019. 5. Code status, DNR. 6. Hospitalized at [facility] from 01/15 to 01/21/2019 for right middle lobe pneumonia and multiple decubitus with infection. 7. Diarrhea. a. Stools for Clostridium difficile toxin and antigen, negative as of 2018. b. Etiology of the diarrhea may be secondary to the effect of the Augmentin and contributed to by the dietary supplements. c. Resolved as of 01/28/2019. 8. Hypokalemia. a. Potassium originally was 2.9, went up yesterday to 3, and now down to 2.5 secondary to the diarrhea as of 01/24/2019. b. Resolved with potassium 3.7 with supplementation as of 01/28/2019. 9. Urinary tract infection with Denia as of 01/31/2019. a. Started on Diflucan on 01/31/2019. PLAN: The patient's eating is still a struggle. We will continue to encourage her. She is not a candidate for any type of enteral feeding. Continue the wound care. Continue a 7-day course of the Diflucan for the Denia UTI. Continue comfort measures. Long-term prognosis remains very poor. Job ID: [id number] [facility]
[2019-02-01] MEDS: Mirtazapine 15 MG TAB PO SCH (20:52)
[2019-02-02] MEDS: Acetaminophen 325 MG TAB PO PRN ×2 (06:33→20:01)
[2019-02-02] MEDS: Potassium Chloride 20 MEQ TAB PO SCH (09:50)
[2019-02-02] MEDS: Fluconazole 100 MG TAB PO SCH (09:50)
[2019-02-02] MEDS: Saccharomyces boulardii 250 MG CAP PO SCH (09:50)
[2019-02-02] MEDS: Morphine 10 MG/0.5 ML ORAL SYRINGE PO PRN (10:41)
[2019-02-02] MEDS: Mirtazapine 15 MG TAB PO SCH (20:01)
[2019-02-03] MEDS: Potassium Chloride 20 MEQ TAB PO SCH (09:42)
[2019-02-03] MEDS: Acetaminophen 325 MG TAB PO PRN ×2 (09:42→20:19)
[2019-02-03] MEDS: Fluconazole 100 MG TAB PO SCH (09:42)
[2019-02-03] MEDS: Saccharomyces boulardii 250 MG CAP PO SCH (09:42)
[2019-02-03] MEDS: Mirtazapine 15 MG TAB PO SCH (20:19)
--- NOTE | 2019-02-04 07:22 | PRG ---
DATE OF SERVICE: 02/02/2019 SUBJECTIVE: The patient was a little more talkative this morning. She said she was not hurting. Nurses reported no change in her condition or problems when the wounds were changed. See pictures from yesterday print line inspector change to see how they appear. OBJECTIVE: GENERAL: The patient is lying in bed, alert, talkative. VITAL SIGNS: Show a temperature of 99, maximum temp was 100.4, pulse 99, respirations 18, O2 saturation 94%, and blood pressure 136/70. Her weight is 90 pounds, which is stable from 01/30, but admission weight was 99. Still struggle to get her to eat much. Her dressings are all dry. LUNGS: Clear. HEART: Regular rate. EXTREMITIES: No edema. ASSESSMENT: 1. Multiple decubitus. a. Stage IV sacral decubitus. b. Stage IV right ischial tuberosity decubitus. c. Unstageable left ischial tuberosity. d. Multiple stage II decubitus over the right shoulder, elbow, dorsum of the foot, left leg. e. Stage III decubitus over the plantar surface of the first MP joint of the right foot. f. Ongoing daily wound care. Wounds look a little card cleaner from pictures of print line inspector of 02/01. Still has several end stage of wounds, but these were small as of 02/02/2019. 2. Vascular dementia, very advanced. a. Requires total care. 3. History of cerebral vascular accident. a. 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 b. Extension deformity with plantar flexion of the right leg. c. Essentially quadriplegic. 4. Severe weakness. a. Bed confined. b. Requires total care. c. Urinary incontinence. d. Unchanged as of 02/02/2019. 5. Code status, DNR. 6. Hospitalized at [facility] from 01/15 to 01/21/2019 for right middle lobe pneumonia and multiple decubitus with infection. 7. Diarrhea. a. Stools for Clostridium difficile toxin and antigen, negative as of 2018. b. Etiology of the diarrhea may be secondary to the effect of the Augmentin and contributed to by the dietary supplements. c. Resolved as of 01/28/2019. 8. Hypokalemia. a. Potassium originally was 2.9, went up yesterday to 3, and now down to 2.5 secondary to the diarrhea as of 01/24/2019. b. Resolved with potassium 3.7 with supplementation as of 01/28/2019. 9. Urinary tract infection with Denia as of 01/31/2019. a. Started on Diflucan on 01/31/2019. PLAN: Continue present care. Continue comfort measures. Long-term prognosis remains still very poor, very unlikely that these larger wounds will ever completely heal. Job ID: [id number] [facility]
[2019-02-04] MEDS: Potassium Chloride 20 MEQ TAB PO SCH (09:09)
[2019-02-04] MEDS: Fluconazole 100 MG TAB PO SCH (09:09)
[2019-02-04] MEDS: Saccharomyces boulardii 250 MG CAP PO SCH (09:09)
--- NOTE | 2019-02-04 10:07 | PRG ---
DATE OF SERVICE: 02/04/2019 SUBJECTIVE: The patient had no complaint today. When asked if she needed anything, she asked for ice cream. Nurses said she eats little, but they encouraged her. OBJECTIVE: GENERAL: The patient is lying in bed. She is alert. Appears comfortable. VITAL SIGNS: Show a temperature of 100.3 last evening. Her temp was 92, respirations 18, O2 saturation 96%, and blood pressure 134/67. The patient had 300 mL urinary output over the last 24 hours. LUNGS: Clear. HEART: Regular rate. Dressings are dry. ASSESSMENT: 1. Multiple decubitus. a. Stage IV sacral decubitus. b. Stage IV right ischial tuberosity decubitus. c. Unstageable left ischial tuberosity. d. Multiple stage II decubitus over the right shoulder, elbow, dorsum of the foot, left leg. e. Stage III decubitus over the plantar surface of the first MP joint of the right foot. f. Ongoing daily wound care. Wounds look a little leather cleaner. There is still several unstageable wounds present as of 02/04/2019. 2. Vascular dementia, very advanced. a. Requires total care. 3. History of cerebral vascular accident. a. 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 b. Extension deformity with plantar flexion of the right leg. c. Essentially quadriplegic. 4. Severe weakness. a. Bed confined. b. Requires total care. c. Urinary incontinence. d. Unchanged as of 02/01/2019. 5. Code status, DNR. 6. Hospitalized at [facility] from 01/15 to 01/21/2019 for right middle lobe pneumonia and multiple decubitus with infection. 7. Diarrhea. a. Stools for Clostridium difficile toxin and antigen, negative as of 2018. b. Etiology of the diarrhea may be secondary to the effect of the Augmentin and contributed to by the dietary supplements. c. Resolved as of 01/28/2019. 8. Hypokalemia. a. Potassium originally was 2.9, went up yesterday to 3, and now down to 2.5 secondary to the diarrhea as of 01/24/2019. b. Resolved with potassium 3.7 with supplementation as of 01/28/2019. 9. Urinary tract infection with Denia as of 01/31/2019. a. Started on Diflucan on 01/31/2019. 10. Adult failure to thrive. a. Manifest with anorexia, poor nutritional intake, and protein malnutrition. b. Complicated by need for total care. c. Complicated by multiple decubiti. PLAN: Continue comfort measures. Continue wound care. The patient is running a low-grade fever. Suspect these are from the wounds. Job ID: [id number] [facility]
[2019-02-04] MEDS: Acetaminophen 325 MG TAB PO PRN (12:48)
[2019-02-04] MEDS: Mirtazapine 15 MG TAB PO SCH (21:29)
[2019-02-05] MEDS: Morphine 10 MG/0.5 ML ORAL SYRINGE PO PRN ×2 (00:36→22:51)
[2019-02-05] MEDS: Fluconazole 100 MG TAB PO SCH (08:38)
[2019-02-05] MEDS: Saccharomyces boulardii 250 MG CAP PO SCH (08:38)
[2019-02-05] MEDS: Potassium Chloride 20 MEQ TAB PO SCH (08:38)
[2019-02-05] MEDS: Acetaminophen 325 MG TAB PO PRN (19:33)
[2019-02-05] MEDS: Mirtazapine 15 MG TAB PO SCH (20:19)
[2019-02-06] MEDS: Fluconazole 100 MG TAB PO SCH (08:17)
[2019-02-06] MEDS: Potassium Chloride 20 MEQ TAB PO SCH (08:17)
[2019-02-06] MEDS: Saccharomyces boulardii 250 MG CAP PO SCH (08:17)
[2019-02-06] MEDS: Acetaminophen 325 MG TAB PO PRN (19:40)
[2019-02-06] MEDS: Morphine 10 MG/0.5 ML ORAL SYRINGE PO PRN (19:41)
[2019-02-06] MEDS: Mirtazapine 15 MG TAB PO SCH (20:43)
--- NOTE | 2019-02-07 08:13 | PRG ---
DATE OF SERVICE: 02/06/2019 SUBJECTIVE: The patient did not have any complaints this morning. The patient is eating a little better according to the dietitian. OBJECTIVE: GENERAL: The patient is lying in bed. She is alert, appears comfortable, and in no distress. VITAL SIGNS: Her temperature is 99.6; last evening, she had a temperature of 101.7, her pulse 111, respirations 16, O2 saturation 97%, and blood pressure 126/66. Her weight is up to 100 pounds from previous weight of 90 during her hospital stay. Her admission weight was 99. LUNGS: Clear. HEART: Regular rate. Dressings are all dry. There have to be changed. No dramatic changes reported by nurses on the wounds ASSESSMENT: 1. Multiple decubitus. a. Stage IV sacral decubitus. b. Stage IV right ischial tuberosity decubitus. c. Unstageable left ischial tuberosity. d. Multiple stage II decubitus over the right shoulder, elbow, dorsum of the foot, left leg. e. Stage III decubitus over the plantar surface of the first MP joint of the right foot. f. Ongoing daily wound care. Wounds are gradually looking little booth cleaner. She still has several that are unstageable as of 02/06/2019. 2. Vascular dementia, very advanced. a. Requires total care. 3. History of cerebral vascular accident. a. 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 b. Extension deformity with plantar flexion of the right leg. c. Essentially quadriplegic. 4. Severe weakness. a. Bed confined. b. Requires total care. c. Urinary incontinence. d. Unchanged as of 02/01/2019. 5. Code status, DNR. 6. Hospitalized at [facility] from 01/15 to 01/21/2019 for right middle lobe pneumonia and multiple decubitus with infection. 7. Diarrhea. a. Stools for Clostridium difficile toxin and antigen, negative as of 2018. b. Etiology of the diarrhea may be secondary to the effect of the Augmentin and contributed to by the dietary supplements. c. Resolved as of 01/28/2019. 8. Hypokalemia. a. Potassium originally was 2.9, went up yesterday to 3, and now down to 2.5 secondary to the diarrhea as of 01/24/2019. b. Resolved with potassium 3.7 with supplementation as of 01/28/2019. 9. Urinary tract infection with Denia as of 01/31/2019. a. Started on Diflucan on 01/31/2019. 10. Adult failure to thrive. a. Manifest with anorexia, poor nutritional intake, and protein malnutrition. b. Complicated by need for total care. c. Complicated by multiple decubiti. d. Eating a little better and weight has improved as of 02/06/2019. PLAN: Continue present care. The patient is running some low grade episode of a temperature of 101.7 last night. Note, suspect these may be coming from wounds. We will continue present care and comfort measures. Job ID: [id number] [facility]
[2019-02-07] MEDS: Potassium Chloride 20 MEQ TAB PO SCH (09:06)
[2019-02-07] MEDS: Saccharomyces boulardii 250 MG CAP PO SCH (09:06)
[2019-02-07] MEDS: Acetaminophen 325 MG TAB PO PRN (09:06)
[2019-02-07] MEDS: Mirtazapine 15 MG TAB PO SCH (20:50)
[2019-02-08] MEDS: Potassium Chloride 20 MEQ TAB PO SCH (09:13)
[2019-02-08] MEDS: Saccharomyces boulardii 250 MG CAP PO SCH (09:14)
--- NOTE | 2019-02-08 15:38 | PRG ---
DATE OF SERVICE: 02/08/2019 SUBJECTIVE: The patient's nurses report no change in the patient's condition. Has some times where she will eat a little bit, most times it takes a lot of encouragement to get her to eat. She had no complaint today. OBJECTIVE: GENERAL: The patient is lying in bed, looks comfortable. VITAL SIGNS: Her temperature is 98.4. Yesterday morning, she had a temperature of 101.4, but no significant temperature since then. Her pulse is 100, respirations 18, O2 saturation 95%, blood pressure 126/71. LUNGS: Clear. HEART: Regular rate. EXTREMITIES: No edema. Wounds were all dressed. ASSESSMENT: 1. Multiple decubitus. a. Stage IV sacral decubitus. b. Stage IV right ischial tuberosity decubitus. c. Unstageable left ischial tuberosity. d. Multiple stage II decubitus over the right shoulder, elbow, dorsum of the foot, left leg. e. Stage III decubitus over the plantar surface of the first MP joint of the right foot. f. Ongoing daily wound care. Wounds are gradually looking little belt cleaner. She still has several that are unstageable as of 02/08/2019. 2. Vascular dementia, very advanced. a. Requires total care. 3. History of cerebral vascular accident. a. 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 b. Extension deformity with plantar flexion of the right leg. c. Essentially quadriplegic. 4. Severe weakness. a. Bed confined. b. Requires total care. c. Urinary incontinence. d. Unchanged as of 02/08/2019. 5. Code status, DNR. 6. Hospitalized at [facility] from 01/15 to 01/21/2019 for right middle lobe pneumonia and multiple decubitus with infection. 7. Diarrhea. a. Stools for Clostridium difficile toxin and antigen, negative as of 2018. b. Etiology of the diarrhea may be secondary to the effect of the Augmentin and contributed to by the dietary supplements. c. Resolved as of 01/28/2019. 8. Hypokalemia. a. Potassium originally was 2.9, went up yesterday to 3, and now down to 2.5 secondary to the diarrhea as of 01/24/2019. b. Resolved with potassium 3.7 with supplementation as of 01/28/2019. 9. Urinary tract infection with Denia as of 01/31/2019. a. Started on Diflucan on 01/31/2019. 10. Adult failure to thrive. a. Manifest with anorexia, poor nutritional intake, and protein malnutrition. b. Complicated by need for total care. c. Complicated by multiple decubiti. d. Eating a little better and weight has improved as of 02/06/2019. Stable as of 02/08/2019. PLAN: Continue comfort measures. Continue present wound care. Continued encouragement to eat. Job ID: [id number] [facility]
[2019-02-08] MEDS: Acetaminophen 325 MG TAB PO PRN ×2 (17:29→21:09)
[2019-02-08] MEDS: Mirtazapine 15 MG TAB PO SCH (21:05)
[2019-02-08] MEDS: Morphine 10 MG/0.5 ML ORAL SYRINGE PO PRN (23:11)
[2019-02-09] MEDS: Morphine 10 MG/0.5 ML ORAL SYRINGE PO PRN ×2 (08:23→15:12)
[2019-02-09] MEDS: Saccharomyces boulardii 250 MG CAP PO SCH (08:25)
[2019-02-09] MEDS: Potassium Chloride 20 MEQ TAB PO SCH (08:25)
[2019-02-09] MEDS: Acetaminophen 325 MG TAB PO PRN (08:25)
[2019-02-09] MEDS: Mirtazapine 15 MG TAB PO SCH (20:16)
[2019-02-09] MEDS: Acetaminophen 650 MG Suppository PR PRN (20:16)
[2019-02-10] MEDS: Morphine 10 MG/0.5 ML ORAL SYRINGE PO PRN (04:28)
[2019-02-10] MEDS: Saccharomyces boulardii 250 MG CAP PO SCH (08:41)
[2019-02-10] MEDS: Potassium Chloride 20 MEQ TAB PO SCH (08:41)
[2019-02-10] MEDS: Mirtazapine 15 MG TAB PO SCH (20:36)
[2019-02-11] MEDS: Acetaminophen 325 MG TAB PO PRN ×2 (08:50→17:37)
[2019-02-11] MEDS: Saccharomyces boulardii 250 MG CAP PO SCH (08:51)
[2019-02-11] MEDS: Potassium Chloride 20 MEQ TAB PO SCH (08:51)
[2019-02-11] MEDS: Acetaminophen 650 MG Suppository PR PRN ×2 (09:05→20:51)
[2019-02-11 16:24] VITALS: BMI 17.6
[2019-02-11] MEDS: Mirtazapine 15 MG TAB PO SCH (20:51)
[2019-02-12] MEDS: Morphine 10 MG/0.5 ML ORAL SYRINGE PO PRN ×3 (01:16→23:05)
[2019-02-12] MEDS: Saccharomyces boulardii 250 MG CAP PO SCH (08:04)
[2019-02-12] MEDS: Potassium Chloride 20 MEQ TAB PO SCH (08:04)
--- NOTE | 2019-02-12 10:44 | PRG ---
DATE OF SERVICE: 02/12/2019 SUBJECTIVE: Nurses do not report any real change in patient. Her urine output had been 250 per day over the last 24 hours. Today, her record indicates minimal urinary output. Weight dropped to 100. She is not eating. OBJECTIVE: GENERAL: The patient is lying in bed. She is less interactive than usual. VITAL SIGNS: Temperature of 101, pulse 128, respirations 28, O2 saturation 94%, and blood pressure 85/54. LUNGS: Clear. HEART: Regular rate. Dressings were all dry. ASSESSMENT: 1. Multiple decubitus. a. Stage IV sacral decubitus. b. Stage IV right ischial tuberosity decubitus. c. Unstageable left ischial tuberosity. d. Multiple stage II decubitus over the right shoulder, elbow, dorsum of the foot, left leg. e. Stage III decubitus over the plantar surface of the first MP joint of the right foot. f. Ongoing daily wound care. Wounds are gradually looking little overhead cleaner maintainer. She still has several that are unstageable as of 02/12/2019. 2. Vascular dementia, very advanced. a. Requires total care. 3. History of cerebral vascular accident. a. 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 b. Extension deformity with plantar flexion of the right leg. c. Essentially quadriplegic. 4. Severe weakness. a. Bed confined. b. Requires total care. c. Urinary incontinence. d. Unchanged as of 02/12/2019. 5. Code status, DNR. 6. Hospitalized at [facility] from 01/15 to 01/21/2019 for right middle lobe pneumonia and multiple decubitus with infection. 7. Diarrhea. a. Stools for Clostridium difficile toxin and antigen, negative as of 2018. b. Etiology of the diarrhea may be secondary to the effect of the Augmentin and contributed to by the dietary supplements. c. Resolved as of 01/28/2019. 8. Hypokalemia. a. Potassium originally was 2.9, went up yesterday to 3, and now down to 2.5 secondary to the diarrhea as of 01/24/2019. b. Resolved with potassium 3.7 with supplementation as of 01/28/2019. 9. Urinary tract infection with Denia as of 01/31/2019. a. Started on Diflucan on 01/31/2019. 10. Adult failure to thrive. a. Manifest with anorexia, poor nutritional intake, and protein malnutrition. b. Complicated by need for total care. c. Complicated by multiple decubiti. d. Not eating, weight has dropped, urinary output has dropped, blood pressures dropped. Condition declining as of 02/12/2019. 11. Continued intermittent low-grade fevers. A source is probably from the multiple wounds. PLAN: We will continue comfort measures. Continue wound care, position for comfort, morphine is available as needed. Job ID: [id number] [facility]
[2019-02-12] MEDS: Mirtazapine 15 MG TAB PO SCH (21:12)
[2019-02-13] MEDS: Morphine 10 MG/0.5 ML ORAL SYRINGE PO PRN (02:08)
[2019-02-13] MEDS: Potassium Chloride 20 MEQ TAB PO SCH (07:54)
[2019-02-13] MEDS: Saccharomyces boulardii 250 MG CAP PO SCH (07:54)
--- NOTE | 2019-02-13 11:30 | PRG ---
DATE OF SERVICE: 02/13/2019 SUBJECTIVE: The patient's condition has been one of continual decline such that she is unresponsive this morning. She has had only 50 mL of urinary output over the last 24 hours. As she has intermittent temp elevations up to 101, nurses report that on changing the dressings over the sacral wound that she has a pinpoint area, that is draining a large amount of pus, probably from an abscess adjacent to this sacral decubitus and this is been the source of the fever. OBJECTIVE: GENERAL: The patient is unresponsive. HEENT: Her eyes are partially open. Her mouth is dry. She is diaphoretic as she was unresponsive to verbal or tactile stimuli. LUNGS: Clear. HEART: Rapid, regular rhythm. ASSESSMENT: 1. Multiple decubitus. a. Complicated by adjacent abscess, that is draining into the wound bed and source of the fever, not a candidate for any surgical intervention as of 02/13/2019. b. Stage IV right ischial tuberosity decubitus. c. Unstageable left ischial tuberosity. d. Multiple stage II decubitus over the right shoulder, elbow, dorsum of the foot, left leg. e. Stage III decubitus over the plantar surface of the first MP joint of the right foot. f. Wound changes for comfort as needed as of 02/13/2019. 2. Vascular dementia, very advanced. a. Requires total care. 3. History of cerebral vascular accident. a. 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 b. Extension deformity with plantar flexion of the right leg. c. Essentially quadriplegic. 4. Severe weakness. a. Bed confined. b. Requires total care. c. Urinary incontinence. d. Unchanged as of 02/12/2019. 5. Code status, DNR. 6. Hospitalized at [facility] from 01/15 to 01/21/2019 for right middle lobe pneumonia and multiple decubitus with infection. 7. Diarrhea. a. Stools for Clostridium difficile toxin and antigen, negative as of 2018. b. Etiology of the diarrhea may be secondary to the effect of the Augmentin and contributed to by the dietary supplements. c. Resolved as of 01/28/2019. 8. Hypokalemia. a. Potassium originally was 2.9, went up yesterday to 3, and now down to 2.5 secondary to the diarrhea as of 01/24/2019. b. Resolved with potassium 3.7 with supplementation as of 01/28/2019. 9. Urinary tract infection with Denia as of 01/31/2019. a. Started on Diflucan on 01/31/2019. 10. Adult failure to thrive. a. Manifest with anorexia, poor nutritional intake, and protein malnutrition. b. Complicated by need for total care. c. Complicated by multiple decubiti. d. Not eating, weight has dropped, urinary output has dropped, blood pressures dropped. Condition declining as of 02/12/2019. 11. Intermittent fever secondary to the wound, the sacral decubitus with probably adjacent abscess as of 02/13/2019. 12. Unresponsive as of 02/13/2019. PLAN: The patient's condition has been one of continual decline. We will continue comfort care only. Wound care only as needed. Not sure that she will last through the day. We will stop the oral medications. Continue the morphine as needed. Job ID: [id number] [facility]
[2019-02-13] MEDS: Artificial Tear Sol 15 ML BOT EA EYE PRN (12:00)
--- NOTE | 2019-02-14 10:01 | PRG ---
DATE OF SERVICE: 02/14/2019 SUBJECTIVE: The patient remains unresponsive. She looks very comfortable in bed. OBJECTIVE: VITAL SIGNS: Showed temperature 96.3; pulse 103; respirations 20; O2 saturation 95% on 2 L; blood pressure 98/60, during the night it was 82/50. LUNGS: Clear. HEART: Rapid, regular rhythm. NEURO: The patient is unresponsive to verbal or tactile stimuli. ASSESSMENT: The patient's condition continues to deteriorate. She remains unresponsive and impending. PLAN: Continue comfort measures. Job ID: [id number]
[2019-02-14] MEDS: Morphine 10 MG/0.5 ML ORAL SYRINGE PO PRN (12:11)
[2019-02-14] MEDS: Artificial Tear Sol 15 ML BOT EA EYE PRN (12:11)
[2019-02-14] MEDS ORDERED: Sodium Chloride Irrig Solution 250 ML BOT ONE (14:21)
--- NOTE | 2019-02-15 09:49 | PRG ---
DATE OF SERVICE: 02/15/2019 SUBJECTIVE: The patient remains unresponsive. She has had 200 mL of urine output over the last 24 hours. OBJECTIVE: VITAL SIGNS: Her temperature was 97.2, pulse 94, blood pressure 95/51, respirations 12, O2 saturation 95% on 2 L. LUNGS: Clear. HEART: Regular rhythm. EXTREMITIES: Dressings are all dry. NEUROLOGIC: The patient is unresponsive to tactile or verbal stimuli. ASSESSMENT AND PLAN: Remains unresponsive and unable to eat. We will continue comfort measures only. Job ID: [id number]
[2019-02-16] MEDS: Morphine 10 MG/0.5 ML ORAL SYRINGE PO PRN ×3 (11:03→19:08)
[2019-02-17] MEDS: Artificial Tear Sol 15 ML BOT EA EYE PRN (00:35)
[2019-02-17] MEDS: Morphine 10 MG/0.5 ML ORAL SYRINGE PO PRN (02:33)
--- NOTE | 2019-02-18 07:31 | PRG ---
DATE OF SERVICE: 02/16/2019 SUBJECTIVE: Nurses have bathed the patient, cleaned her, and changed the dressings. The nurse reported that there was brown drainage coming from a hole in the center of the base of the sacral wound. The patient has remained unresponsive. OBJECTIVE: GENERAL: On exam, she is totally unresponsive. Her eyes are partially open. VITAL SIGNS: Her blood pressures been low. Her pulse is elevated. She has a temperature of 99.2. She has O2 on at 2 L. CHEST: Clear. HEART: Rapid, regular rhythm. EXTREMITIES: The patient has mottling over her forehead, over her nose, and over her forearms and hands, and over her lower legs and feet. ASSESSMENT AND PLAN: The patient remains unresponsive and continues to deteriorate. Surely, her time will be here very soon. Job ID: [id number]
[2019-02-18] MEDS: Morphine 10 MG/0.5 ML ORAL SYRINGE PO PRN (07:34)
--- NOTE | 2019-02-18 09:54 | PRG ---
DATE OF SERVICE: 02/18/2019 SUBJECTIVE: The patient remains unresponsive, not able to take any liquids or nutrition. OBJECTIVE: VITAL SIGNS: Her blood pressure remains low, 75/45. O2 saturation, requiring supplementation with 2 L nasal cannula. GENERAL: This morning, the patient is lying in bed, is unresponsive. She has waxy appearance to her skin, some mottling present. She has an audible rattling that is mild. LUNGS: Also demonstrate expiratory rhonchi. HEART: Regular rate. ASSESSMENT: The patient continues to remain unresponsive. Time certainly is very close now. Job ID: [id number]
--- NOTE | 2019-02-19 11:08 | PRG ---
DATE OF SERVICE: 02/19/2019 The patient remains unresponsive. Blood pressure has varied from the 70s to 106 systolic, pulse has been in 80s and 90s, temperature is decreasing at 96.6, O2 saturation has been 92% on 2 L. Her lungs on the anterior chest sound clear today without the rattle. She remains unresponsive to any verbal or tactile stimuli. Her condition continues to deteriorate. Continue comfort measures only. Job ID: [id number]
[2019-02-19] MEDS: Morphine 10 MG/0.5 ML ORAL SYRINGE PO PRN (11:53)
[2019-02-19] MEDS ORDERED: Sodium Chloride Irrig Solution 250 ML BOT ONE (12:59)
[2019-02-19] MEDS: Artificial Tear Sol 15 ML BOT EA EYE PRN (15:06)
[2019-02-19 19:46] VITALS: BP 95/61; TEMP 97.6
[2019-02-20] MEDS: Morphine 10 MG/0.5 ML ORAL SYRINGE PO PRN ×2 (04:09→10:35)
--- NOTE | 2019-02-20 11:26 | PRG ---
DATE OF SERVICE: 02/20/2019 The patient remains unresponsive. Blood pressure at times is low. She still requires supplemental O2. Her urinary output has been minimal. She is having slowing of respiration and some apneic spells. This morning, she is unresponsive during my exam. She had a short apneic episode. Anterior chest is clear. The patient remains unresponsive, and we will continue comfort measures. We will stop vital signs since results of these will not alter her care. Job ID: [id number]
--- NOTE | 2019-02-21 11:14 | DIS ---
DATE OF ADMISSION: 01/21/2019 DATE OF DISCHARGE: 02/20/2019 DATE OF EXPIRATION: 02/20/2019. FINAL DIAGNOSES: 1. Multiple decubitus. a. Large necrotic stage IV sacral decubitus with underlying abscess for which patient was not a candidate for any type of surgical intervention. b. Stage IV right ischial tuberosity decubitus. c. Unstageable left ischial tuberosity. d. Multiple stage II decubitus over the right shoulder, elbow, dorsum of the foot, left leg. e. Stage III decubitus over the plantar surface of the first MP joint of the right foot. f. Wounds managed palliatively. 2. Vascular dementia, very advanced. a. Requires total care. 3. History of cerebral vascular accident. a. 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 b. Extension deformity with plantar flexion of the right leg. c. Essentially quadriplegic. 4. Severe weakness. a. Bed confined. b. Requires total care. c. Urinary incontinence. 5. Code status, DNR. 6. Hospitalized at [facility] from 01/15 to 01/21/2019 for right middle lobe pneumonia and multiple decubitus with infection. 7. Diarrhea. a. Stools for Clostridium difficile toxin and antigen, negative as of 2018. b. Etiology of the diarrhea may be secondary to the effect of the Augmentin and contributed to by the dietary supplements. c. Resolved as of 01/28/2019. 8. Hypokalemia. a. Potassium originally was 2.9, went up yesterday to 3, and now down to 2.5 secondary to the diarrhea as of 01/24/2019. b. Resolved with potassium 3.7 with supplementation as of 01/28/2019. 9. Urinary tract infection with Denia as of 01/31/2019. a. Started on Diflucan on 01/31/2019. 10. Adult failure to thrive. a. Manifest with anorexia, poor nutritional intake, and protein malnutrition. b. Complicated by need for total care. c. Complicated by multiple decubiti. d. Complicated by eventual cessation of eating, unresponsiveness, probably renal failure and on 02/20/2019. 11. Intermittent fever secondary to the wound infections that were being managed palliatively. 12. Palliative mangement/DNR. CAUSE OF : Failure to thrive, complicated by eventual cessation of eating, dehydration, renal failure, and contributed to by wound infections. SUMMARY: Ms. Buck was an 83-year-old white female, who had a history of cerebral vascular accidents that has left her with a left hemiparalysis complicated by severe flexion contractures of the arms, hand, fingers and leg. She also has extensive weakness on her right side. She has been left essentially bed confined and requiring total care. She can only use her right hand in a limited fashion. She also has a history of vascular dementia and adult failure to thrive. The patient has been cared for by daughter in-law for the last 6 years, requiring total care. Recently, she had developed multiple ulcerations on her buttock and feet. In the past, she had had episodes of ulcers on her feet that the [id number] was able to manage with resolution of the ulcers. At this time, the ulcerations persisted in spite of her efforts and it became beyond her capability of managing. She took Ms. Buck to [facility], where she was hospitalized from 01/15 through for right middle lobe pneumonia and multiple decubitus with infections. While there, she was found to have multiple stage IV decubitus over the sacrum, over these ischial tuberosity, and various stage 2s over the shoulders, elbow, and feet. The patient was seen in consultation by Infectious Disease, Dr. Nuñez and general surgeon, Dr. Cam Joyce. Both felt like with the patient's overall very poor condition and continual gradual decline, that she could not tolerate the extensive surgical debridement, that would be required on these wounds. An extensive period of IV antibiotics, it is felt like, her chance of any type of eventual improvement or resolution would not occur. It felt like that the treatment would create more discomfort for this lady, who has continued to decline. Discussion with the family, they were in agreement, and were ready to call in, but were not ready to be discharged under Hospice. The patient though was transferred to [facility] on 01/21 for the wound care and palliative management, visiting with the daughter, they knew that Ms. Buck's condition was one of continual decline and that there was really no realistic hope that these wounds would ever heal. The patient was admitted for care of her wounds and palliative management. During her hospitalization, she developed some diarrhea that was negative for Clostridium difficile and was thought to be more related to the Augmentin that she had been discharged from [facility]. Her supplements and the Augmentin were stopped, and the diarrhea stopped. She developed some hypokalemia that resolved with potassium supplementation. She had a Denia urinary tract infection treated with Diflucan. The patient ate very, very little and took quite a bit of effort to encourage for her to eat, which she would. During her hospitalization, her wounds were cared for with daily wound changes. The large stage IV wounds were cleaned with saline and packed wet-to-dry dressing, then over covered with gauze and ABD dressings, and the other wounds that were small were over covered with Mepilex dressings. She was placed on air floatation mattress. She was not placed on multiple vitamins, protein supplements because she was taking very, very little oral. The patient's condition was one of continual decline. She developed pussy drainage through her pinpoint holes in the base of the necrotic base in the large sacral decubitus, which were probably the source of her intermittent fever spikes. It was opted not to try to treat these with IV antibiotics due to the discomfort that would be evoked with just with trying to initiate an IV site and the patient was being managed just palliatively with no intent. More invasive care. Some of her wounds temporarily improved and were white work cleaner. The patient's sacral decubitus developed the increasing pussy drainage from probable underlying abscess, for which she was not a candidate for or extensive debridement that was needed. The patient gradually ate less and less and gradually just quit eating altogether. She gradually became unresponsive. She was managed palliatively. She was positioned in positions of comfort. She had morphine sublingual to use, if needed. Her urinary output decreased. Her blood pressure dropped and she eventually she ceased breathing and heart stopped on the late afternoon of 02/20/2019. The cause of her was probably primarily from the failure to thrive with sensation of eating, and then the gradual onset of dehydration, renal failure, and contributed to by the infection from the multiple decubitus, that were being managed palliatively. No resuscitative efforts were done. The family was notified. The patient had a DNR. Job ID: [id number] [facility]
== END 2019-02-20 17:40 | disposition expired | DRG 593 ==
LOC: MADMS 18:20
PROVIDERS: ADMIT Family Medicine; ATTEND Family Medicine
DX: L89.154 Pressure ulcer of sacral region, stage 4 (principal); B37.49 Other urogenital candidiasis; E46 Unspecified protein-calorie malnutrition; Z68.1 Body mass index [BMI] 19.9 or less, adult; I69.954 Hemiplegia and hemiparesis following unspecified cerebrovascular disease affecting left non-dominant side; Z66 Do not resuscitate; Z51.5 Encounter for palliative care; G83.9 Paralytic syndrome, unspecified; L89.012 Pressure ulcer of right elbow, stage 2; L89.112 Pressure ulcer of right upper back, stage 2; L89.314 Pressure ulcer of right buttock, stage 4; L89.893 Pressure ulcer of other site, stage 3; N19 Unspecified kidney failure; R32 Unspecified urinary incontinence; E86.0 Dehydration; F01.50 Vascular dementia, unspecified severity, without behavioral disturbance, psychotic disturbance, mood disturbance, and anxiety; L89.320 Pressure ulcer of left buttock, unstageable; R19.7 Diarrhea, unspecified; E87.6 Hypokalemia; Z74.01 Bed confinement status
CPT/HCPCS: 36415; 80048; 80053; 81001; 85025; 87086; 87324; 87449; J1644